=== PATIENT | male | born 1965 | race African-American/Black ===

== ENCOUNTER 2019-12-01 14:18 | Observation (INO) | payer OTHER, SELFPAY ==
[2019-12-01] VITALS (11 sets, daily range): BP systolic 139–168; BP diastolic 76–100; PULSE 52–67; RESP 14–22; TEMP 36.6–36.8; O2SAT 96–100; BMI 31.4
--- NOTE | ~2019-12-01 | CT_ITS ---
EXAMINATION: CTA chest PE protocol DATE: 12/01/2019 16:11 INDICATION: Chest pain for several months, anterior wall TECHNIQUE: Computed tomography angiography (CTA) of the chest was performed with 100 mL Omnipaque-350 intravenous contrast timed to evaluate the pulmonary arteries. Coronal maximum intensity projection 3D-reconstructions were created by the technologist. Automated exposure control and iterative reconst ruction technique were employed. Exam dose: 515.01 mGy-cm total exam DLP. COMPARISON: 12/01/19992012 two-view chest FINDINGS: There is diagnostic contrast enhancement of the pulmonary arteries and no evidence of pulmo nary embolism. No thoracic aortic aneurysm or dissection. Normal heart size. No pericardial or pleural effusion. No hilar or mediastinal mass lesion or lymphadenopathy. No pulmonary infiltrate or consolidation or pulmonary mass lesion is detected. The included upper abdominal structures are unremarkable, including the visualized portions of the ad renal glands. Postoperative change from anterior cervical spine fusion is incidentally noted but detail is limited due to associated streak artifact. IMPRESSION: No evidence of pulmonary embolism Reviewed, dictated and finalized at [facility]. Reviewed, dictated and finalized at location A.
--- NOTE | ~2019-12-01 | XR_ITS ---
EXAMINATION: XR_CERV2-3V_CR DATE: 12/01/2019 17:24 INDICATION: Numbness in the arms. TECHNIQUE: 4 views of cervical spine were obtained. COMPARISON: None. FINDINGS: There is 6 degrees levocurvature of cervicothoracic spine. There are changes of anterior fu tram procedures at C4-C5 and C6-C7 with instrumentation. There are changes of disc replacement at C5- C6. Vertebral body heights are normal. There is mildly decreased disc height at C3-C4. The facet join ts are unremarkable. There is developmental osseous central canal stenosis from C3 to C6. No preverte bral soft tissue swelling. IMPRESSION: 1. Mild cervical spondylosis. 2. Surgical changes including anterior fusion procedures at C4-C5 and C6-C7 and disc replacement proc edure at C5-C6. Reviewed, dictated and finalized at location A. IMPRESSION: 1. Mild cervical spondylosis. 2. Surgical changes including anterior fusion procedures at C4-C5 and C6-C7 and disc replacement procedure at C5-C6.
--- NOTE | ~2019-12-01 | XR_ITS ---
XR chest 2V DATE: 12/01/2019 14:46 INDICATION: Frontal chest pain for several months TECHNIQUE: PA and lateral views COMPARISON: None FINDINGS: Status post surgical cervical spine fusion. There is suggestion of possible fracture of a f usion plate along the cervical spine. Consider cervical spine radiographs. Normal heart size. No hilar or mediastinal enlargement. No pulmonary infiltrate or consolidation, pl eural effusion or pulmonary vascular congestion or pneumothorax. IMPRESSION: No active cardiac pulmonary disease Possible fracture of surgical metal fusion plate of cervical spine; consider cervical spine radiograp hs as clinically appropriate Reviewed, dictated and finalized at location A. IMPRESSION: No active cardiac pulmonary disease Possible fracture of surgical metal fusion plate of cervical spine; consider ce rvical spine radiographs as clinically appropriate
--- NOTE | ~2019-12-01 | CT_ITS ---
EXAMINATION: CT brain wo con DATE: 12/01/2019 14:58 INDICATION: Left-sided numbness. TECHNIQUE: Computed tomography (CT) of the head was performed without intravenous contrast. The mA wa s adjusted according to patient size. Iterative reconstruction technique was employed. The dose-lengt h product was 605.33 mGy-cm. COMPARISON: None FINDINGS: There is a prominent perivascular space at the inferior aspect of the right basal ganglia. There is no acute ischemic infarct or intracranial hemorrhage. The ventricles are normal in size. The orbits are normal. There is mild mucosal thickening in the paranasal sinuses. The mastoid air cells are normal. IMPRESSION: 1. No etiology for the patient's symptoms. Reviewed, dictated and finalized at location A.
--- NOTE | 2019-12-01 14:28 | ECG_ITS ---
Measurements Intervals [place] Rate: 69 P: 34 [place]: 170 QRS: 15 QRSD: 91 T: 19 QT: 377 QTc: 404 Interpretive Statements SINUS RHYTHM INCOMPLETE RIGHT BUNDLE BRANCH BLOCK BORDERLINE T WAVE ABNORMALITY- INFERIOR LEADS BASELINE WANDER- I, II, V3 BORDERLINE ECG Electronically Signed On 12-01-2019 14:32:29 CDT by Edin Saul D.O.
[2019-12-01] MEDS: ASPIRIN 81 MG CHEWABLE TABLET 324 MG PO (14:30)
[2019-12-01 14:52] LABS: Basophils Absolute Auto 0.1 K/mm3 (0.0-0.1); Basophils Percent Auto 0.8 % (0.2-1.2); Eosinophils Absolute Auto 0.2 K/mm3 (0-0.3); Eosinophils Percent Auto 2.3 % (0-4.4); Hematocrit 44.6 % (42.0-52.0); Hemoglobin 15.6 g/dL (14.0-18.0); Immature Granulocyte Absolute 0.02 K/mm3 (0.00-0.031); Immature Granulocyte Percent A 0.2 % (0-0.5); Lymphocytes Absolute Auto 3.21 K/mm3 (0.9-3.2); Lymphocytes Percent Auto 37.4 % (18.3-44.2); Mean Corpuscular Hemoglobin 29.3 pg (26-34); Mean Corpuscular Volume 83.7 fl (80-100); Mean Platelet Volume 10.5 fl (7.4-10.4); Monocytes Absolute Auto 0.7 K/mm3 (0.1-0.6); Monocytes Percent Auto 7.8 % (2.6-8.5); Neutrophils Absolute Auto 4.4 K/mm3 (1.3-6.7); Neutrophils Percent Auto 51.5 % (45.5-73.1); Platelet Count Result 248 k/mm3 (150-375); Red Blood Count 5.33 M/mm3 (4.6-6.20); Red Cell Distribution Width 12.6 % (11.5-14.5); White Blood Count 8.6 K/mm3 (4.5-10.0)
[2019-12-01 15:01] LABS: Prothrombin Time 12.8 Seconds (11.1-14.7)
[2019-12-01 15:02] LABS: Partial Thromboplastin Time 26.5 SECONDS (22.3-36.8)
[2019-12-01 15:03] LABS: Blood Urea Nitrogen 13 mg/dL (9-20); Calcium 8.8 mg/dL (8.4-10.2); Carbon Dioxide 25 mmol/L (22-30); Chloride 105 mmol/L (98-107); Estimated CRCL calculation 106 ml/min; Estimated Glomerular Filt Rate > 60; Glucose 108 mg/dL (75-110); Magnesium 2.1 mg/dL (1.6-2.3); Potassium 3.9 mmol/L (3.4-5.0); Sodium 137 mmol/L (137-145)
--- NOTE | 2019-12-01 15:04 | ED.CHESTPAIN ---
HPI - Chest Pain General Chief Complaint: Chest Pain Stated Complaint: chest pain Time Seen by Provider: 12/01/19 14:31 Source: RN notes reviewed History of Present Illness HPI narrative: Patient presents emergency department from home for chest pain. Patient states he is been having intermittent chest pain over the past several weeks. States at times will be worse with exertion. Is described as a pressure and a rubbing sensation over the left side of the chest. Patient states that also has been having some intermittent tingling in his left arm and his left leg. He states at times he will have some tingling in his right leg as well but is mainly in his left arm and left leg. While he has a tingling and numbness he denies having any actual difficulty using the left arm or left leg. Patient has had spinal sUrgery before in the past but denies any current neck pain. He denies any previous cardiac history. He denies any fevers or chills abdominal pain or any other symptoms. Patient states most recent episode of left-sided numbness occurred upon awaking this morning has been constant throughout the day Related Data Allergies Allergy/AdvReac Type Severity Reaction Status Date / Time No Known Allergies Allergy Unverified 03/15/14 19:47 Review of Systems Review of Systems: Narrative: Gen.: Denies fevers or chills Eyes: Denies eye pain or visual change ENT: Denies congestion Respiratory: Denies shortness of breath or cough CV: Reports chest pain GI: Denies abdominal pain nausea, emesis or diarrhea denies burning, urgency, frequency or hematuria Musculoskeletal: Denies back pain or muscle pain Neuro: Denies numbnessweakness or focal weakness reports tingling in the left hand elbow and the bilateral lower extremities Skin: Denies rash Except as documented, all other systems reviewed and negative [facility] Past Medical History Medical History (Updated 12/01/19 @ 19:20 by Hector Carney DO) Patient denies significant medical history Surgical History Surgical History (Updated 12/01/19 @ 18:51 by Hector Carney DO) Hx of cervical spine surgery Social History Social History (Updated 12/01/19 @ 18:51 by Hector Carney DO) Smoking status: Never smoker Exam Narrative: Exam Narrative: APPEARANCE: No acute distress, nontoxic, resting in bed EYES: EOMI HEENT: Normocephalic, atraumatic, OMM RESPIRATORY: No respiratory distress Clear to auscultation bilaterally with no rhonchi wheezing or rales. CARDIOVASCULAR: Regular rate and rhythm without murmurs rubs or gallops. ABDOMINAL: Soft, nontender, nondistended, no rebound or guarding MUSCULOSKELETAl: Moves all extremities. No clubbing, cyanosis or edema. NEURO: Awake and alert x 3. Following commands, speech normal, no focal deficits muscle strength 5 out of 5 bilateral upper and lower extremities SKIN:: Warm, dry. No rashes lesions or abrasions PSYCHIATRIC: Normal affect/mood, Course Course Emergency Course: Discussed with ROCCO Mora presentation work-up. Agrees with admission at this time Discussed with Dr. Shelton presentation and work-up. Agrees with consult at this time Discussed with patient and family results of workup and diagnosis. Discussed need for admission. Patient and family understand and agree to current treatment plan Vital Signs Vital signs: Vital Signs Temperature 98.3 F 12/01/19 14:21 Pulse Rate 64 12/01/19 14:21 Respiratory Rate 22 H 12/01/19 14:21 Blood Pressure 168/93 H 12/01/19 14:21 Pulse Oximetry 98 12/01/19 14:21 Temperature 98.3 F 12/01/19 14:21 Pulse Rate 58 L 12/01/19 19:05 Respiratory Rate 18 12/01/19 19:05 Blood Pressure 166/95 H 12/01/19 19:05 Pulse Oximetry 99 12/01/19 19:05 MDM - Chest Pain MDM Narrative Medical decision making narrative: Discussed with ROCCO Mora presentation work-up. Agrees with admission at this time Discussed with patient and family results of workup and diagnosis
[2019-12-01 15:15] LABS: Troponin I < 0.012 ng/mL (0.000-0.034)
[2019-12-01 18:02] LABS: Troponin I < 0.012 ng/mL (0.000-0.034)
[2019-12-01 22:03] LABS: Troponin I < 0.012 ng/mL (0.000-0.034)
--- NOTE | 2019-12-01 22:17 | ADMGEN ---
This patient, Kali Linder, was admitted to IMU Room 214-01. Patient/family oriented to hospital policies and general routines including ID bracelet, bed and alarms, visiting hours, pain management, procedures, bathroom and other care routines, personal items, smoking policy, room service/diet, and visiting hours. Valuables list has been completed. Information on how to activate the Rapid Response Team has been discussed. Patient/Family are encouraged to report perceived risks to care and to ask questions if they do not understand what they are told or what they should do.
[2019-12-02] VITALS (8 sets, daily range): BP systolic 130–148; BP diastolic 74–94; PULSE 48–58; RESP 12–18; TEMP 35.8–36.7; O2SAT 97–100
[2019-12-02 05:34] LABS: Basophils Absolute Auto 0.1 K/mm3 (0.0-0.1); Basophils Percent Auto 0.7 % (0.2-1.2); Eosinophils Absolute Auto 0.2 K/mm3 (0-0.3); Eosinophils Percent Auto 2.8 % (0-4.4); Hematocrit 42.6 % (42.0-52.0); Hemoglobin 14.9 g/dL (14.0-18.0); Immature Granulocyte Absolute 0.01 K/mm3 (0.00-0.031); Immature Granulocyte Percent A 0.1 % (0-0.5); Lymphocytes Absolute Auto 2.48 K/mm3 (0.9-3.2); Lymphocytes Percent Auto 36.4 % (18.3-44.2); Mean Corpuscular Hemoglobin 29.3 pg (26-34); Mean Corpuscular Volume 83.7 fl (80-100); Mean Platelet Volume 10.2 fl (7.4-10.4); Monocytes Absolute Auto 0.6 K/mm3 (0.1-0.6); Monocytes Percent Auto 8.2 % (2.6-8.5); Neutrophils Absolute Auto 3.5 K/mm3 (1.3-6.7); Neutrophils Percent Auto 51.8 % (45.5-73.1); Platelet Count Result 211 k/mm3 (150-375); Red Blood Count 5.09 M/mm3 (4.6-6.20); Red Cell Distribution Width 12.3 % (11.5-14.5); White Blood Count 6.8 K/mm3 (4.5-10.0)
[2019-12-02 05:44] LABS: Blood Urea Nitrogen 14 mg/dL (9-20); Calcium 8.6 mg/dL (8.4-10.2); Carbon Dioxide 28 mmol/L (22-30); Chloride 103 mmol/L (98-107); Estimated CRCL calculation 117 ml/min; Estimated Glomerular Filt Rate > 60; Glucose 109 mg/dL (75-110); Potassium 3.9 mmol/L (3.4-5.0); Sodium 136 mmol/L (137-145)
--- NOTE | 2019-12-02 08:24 | PM.CNCAR ---
Assessment and Plan Assessment and plan (1) Chest pain: Code(s): R07.9 - Chest pain, unspecified Status: Acute Assessment and Plan: Atypical chest pain. Will arrange her exercise EKG stress test to rule out ischemia. (2) Left sided numbness: Code(s): R20.0 - Anesthesia of skin Status: Acute Assessment and Plan: Could be related to cervical spine disease. He did have previous cervical spine surgery. (3) Hx of cervical spine surgery: Code(s): Z98.890 - Other specified postprocedural states Status: Acute History of Present Illness History of Present Illness Consult date/time: Date of service 12/02/19 08:24 this is 54-year-old patient with past medical history of cervical spine surgery. He started about couple days feeling intermittent central chest pain, lasted about 10 minutes with no aggravating or relieving factors. Associated with left arm numbness and also numbness of left side his face. Denies shortness of breath, lower limb edema, orthopnea, paroxysmal nocturnal dyspnea, dizziness, syncope. EKG interpreted myself shows normal sinus rhythm and no ischemia. Troponins x3 negative . CT thorax showed no pulmonary embolism,. cervical spine x-ray:1. Mild cervical spondylosis. 2. Surgical changes including anterior fusion procedures at C4-C5 and C6-C7 and disc replacement procedure at C5-C6. Requesting physician: Shaylee Simon MD Consult reason: chest pain Reason For Visit: chest pain, left sided numbness Review of Systems Constitutional: Constitutional: Denies chills, Denies fever(s) and Denies poor appetite Eyes: Eyes: Denies eye discharge, Denies loss of vision, Denies eye pain and Denies photophobia ENT: Denies dizziness, Denies epistaxis, Denies nasal congestion and Denies sore throat Cardiovascular: Cardiovascular: Reports chest pain, Denies syncope, Denies pedal edema, Denies leg edema, Denies palpitations, Denies dyspnea, Denies dyspnea on exertion and Denies orthopnea Respiratory: Respiratory: Denies cough, Denies dyspnea, Denies dyspnea on exertion and Denies wheezing Gastrointestinal: Gastrointestinal: Denies abdominal pain, Denies diarrhea, Denies nausea and Denies vomiting Genitourinary: Genitourinary: Denies hematuria, Denies genital lesions and Denies dysuria Musculoskeletal: Musculoskeletal: Denies arthralgias, Denies joint swelling and Denies numbness Integumentary/Breasts: Skin/Breast: Denies pruritus and Denies rash Neurologic: Denies dizziness, Denies syncope, Denies loss of vision and Reports numbness Psychiatric: Psychiatric: Denies anxiety and Denies depression Endocrine: Endocrine: Denies cold intolerance, Denies heat intolerance and Denies palpitations Hematologic/Lymphatic: Hematologic/Lymphatic: Denies easy bleeding and Denies easy bruising Allergic/Immunologic: Allergic/Immunologic: Denies urticaria and Denies wheezing PMFSH Past Medical History Medical History Patient denies significant medical history Surgical History Surgical History Hx of cervical spine surgery Family History Family History Mother Lung cancer Father CHF (congestive heart failure) Hypertension Sibling Diabetes mellitus Social History Social History Smoking status: Never smoker Alcohol intake: current Substance use: never Substance use type: does not use Spiritual care concerns: No Meds Home Medications and Allergies Home Medications Medication Instructions Recorded Confirmed Type No Home Medications 12/01/19 12/01/19 History Allergies Allergy/AdvReac Type Severity Reaction Status Date / Time No Known Allergies Allergy Unverified 03/15/14 19:47 Vital Signs Vit
--- NOTE | 2019-12-02 13:23 | PM.SD ---
Same Day Admit/Disch: HPI History of Present Illness Chief complaint: chest pain, left sided numbness Narrative: Kali Linder is a 54 year old male admitted with left sided chest pain. ongoing intermittent left sided chest pain associated with mild tingling in arms and feet. pt is very active works out in [employer]. pt denies smoking, pt does not have any cardiac history. pt denies any heart burn or cough or fever or wheeze. pt had ekg showing sinus bradycardia no ischemic event. labs unremarkable, Troponins x3 negative . CT thorax showed no pulmonary embolism. cervical spine x-ray:1. Mild cervical spondylosis. 2. Surgical changes including anterior fusion procedures at C4-C5 and C6-C7 and disc replacement procedure at C5-C6. pt seen by cardiology ok for discharge with follow up stress test. Pts mentions tingling maybe related to cspine surgery. PMFSH Past Medical History Medical History Patient denies significant medical history Surgical History Surgical History Hx of cervical spine surgery Family History Family History Mother Lung cancer Father CHF (congestive heart failure) Hypertension Sibling Diabetes mellitus Social History Social History Smoking status: Never smoker Alcohol intake: current Substance use: never Substance use type: does not use Spiritual care concerns: No Same Day Admit/Disch: Med Pre-admit Medications Home Medications Medication Instructions Recorded Confirmed Type No Home Medications 12/01/19 12/01/19 History Exam Const: General: well developed Nutritional Appearance: well nourished HENMT: Head: normocephalic Eyes: General: appearance normal, both eyes and all related structures Pupils: Equal, round and reactive pupils present Neck: Neck: supple Chest: Chest palpation & inspection: normal inspection of the chest Resp: Effort & Inspection: normal respiratory effort Auscultation: clear to auscultation bilaterally Cardio: Jugular venous distension: no JVD Rhythm: regular rhythm Heart sounds: S1 normal heart sound present and S2 normal heart sound present GI: Inspection: normal to inspection GI Palp: No abdominal tenderness, Yes Soft to palpation and No Tenderness to palpation present (GI) Auscultation: normal bowel sounds Skin: General skin exam: normal color and dry skin Neuro: Cranial nerves: Yes CN's II-XII intact bilaterally and Yes Equal, round and reactive pupils present Cognition (Neuro): normal cognition Speech: normal speech Motor exam (neuro): 5/5 motor strength present throughout Extrem: General: normal to inspection Psych: Appearance: grossly normal Mental Status: mental status grossly normal DS: Data Data Completed and Pending Labs on day of discharge: Labs from last 24 hours 12/02/19 12/02/19 12/01/19 04:47 04:47 21:33 WBC 6.8 RBC 5.09 Hgb 14.9 Hct 42.6 MCV 83.7 MCH 29.3 MCHC 35.0 RDW 12.3 Plt Count 211 MPV 10.2 Immature Gran % (Auto) 0.1 Neut % (Auto) 51.8 Lymph % (Auto) 36.4 [place] % (Auto) 8.2 Eos % (Auto) 2.8 Baso % (Auto) 0.7 Lymph # (Auto) 2.48 [place] # (Auto) 0.6 Eos # (Auto) 0.2 Baso # (Auto) 0.1 Abs Immat Gran (auto) 0.01 Absolute Neuts (auto) 3.5 Absolute Nucleated RBC 0.0 Nucleated RBC % 0.0 PT INR APTT Sodium 136 L Potassium 3.9 Chloride 103 Carbon Dioxide 28 BUN 14 Creatinine 0.90 Estim Creat Clear Calc 117 Estimated GFR > 60 Glucose 109 Calcium 8.6 Magnesium Troponin I < 0.012 12/01/19 12/01/19 12/01/19 17:33 14:42 14:42 WBC RBC Hgb Hct MCV MCH MCHC RDW Plt Count MPV Immature Gran % (Auto)
== END 2019-12-02 13:30 | disposition home or self-care (01) ==
LOC: ANHED 19:20 → ANHIMU 20:22
PROVIDERS: Admitting Provider Family Medicine; Emergency Provider Emergency Medicine; Visit Provider Family Medicine
DX: R07.89 Other chest pain (principal); R20.0 Anesthesia of skin; M47.812 Spondylosis without myelopathy or radiculopathy, cervical region; Z98.1 Arthrodesis status
CPT/HCPCS: 36415; 70450; 71046; 71275; 72040; 80048; 83735; 84484; 85025; 85610; 85730; 93005; 99285; A9270; G0378; Q9967

== ENCOUNTER 2019-12-10 17:46 | Observation (INO) | payer OTHER, SELFPAY ==
[2019-12-10] VITALS (8 sets, daily range): BP systolic 137–155; BP diastolic 81–110; PULSE 55–80; RESP 15–20; TEMP 36.3–36.9; O2SAT 95–100; BMI 29.9; BMI 28.0
--- NOTE | ~2019-12-10 | XR_ITS ---
EXAMINATION: XR chest 2V EXAM DATE: 12/10/2019 18:52 INDICATION: Left-sided chest pain. TECHNIQUE: Frontal and lateral projections of the chest obtained and reviewed. Comparison is made to prior examination from 12/01/2019. FINDINGS: The lungs are clear. There are no pleural effusions. The cardiomediastinal silhouette is within normal limits. There is no pneumothorax suspected. Cervical fusion hardware. There is no sig nificant interval change. IMPRESSION: No acute cardiopulmonary findings. Reviewed, dictated and finalized at location A.
--- NOTE | ~2019-12-10 | CT_ITS ---
EXAMINATION: CT cervical spine wo con DATE: 12/12/2019 15:35 INDICATION: Left-sided numbness. TECHNIQUE: Computed tomography (CT) of the cervical spine was performed without intravenous contrast. Automated exposure control and iterative reconstruction technique were employed. The dose-length pro duct was 510.38 mGy-cm. COMPARISON: None FINDINGS: Bone alignment is normal. Vertebral body heights are normal. There are changes of disc repl acement at C5-C6. There are changes of anterior fusion procedures at C4-C5 and C6-C7 with instrumenta tion. There is mildly decreased disc height at C3-C4. Osseous central spinal canal is developmentally small from C1 to C7. The following disc levels are specifically discussed: C2-C3: There is mild right uncovertebral joint osteoarthritis. There is mild right facet joint osteoa rthritis. There is no neural foraminal stenosis. There is mild central canal stenosis. C3-C4: There is mild bilateral uncovertebral joint osteoarthritis. There is mild bilateral facet join t osteoarthritis. There is no neural foraminal stenosis. There is mild central canal stenosis. C4-C5: There is no uncovertebral joint hypertrophy. There is mild right facet joint osteoarthritis. T here is no neural foraminal stenosis. There is mild central canal stenosis. C5-C6: There is no uncovertebral joint hypertrophy. There is mild bilateral facet joint osteoarthriti s. There is no neural foraminal stenosis. There is mild central canal stenosis. C6-C7: There is mild bilateral uncovertebral joint hypertrophy. There is mild bilateral facet joint h ypertrophy. There is mild bilateral neural foraminal stenosis. There is mild central canal stenosis. C7-T1: There is no uncovertebral joint osteoarthritis. There is moderate right and severe left facet joint osteoarthritis. There is mild left neural foraminal stenosis. There is no central canal stenosi s. IMPRESSION: 1. Mild cervical spondylosis. 2. Anterior fusion procedures at C4-C5 and C6-C7. 3. Disc replacement at C5-C6. Reviewed, dictated and finalized at location E.
--- NOTE | ~2019-12-10 | CT_ITS ---
EXAMINATION: CTA brain carotid DATE: 12/11/2019 14:44 INDICATION: Dizziness and left-sided paresthesias TECHNIQUE: Computed tomographic angiography (CTA) of the head was performed without and with 100 mL O mnipaque-350 intravenous contrast. CTA of the neck was performed with intravenous contrast. The dose- length product was 1847.01 mGy-cm. Maximum intensity projection and volume rendered 3D-reconstruction s were created by the technologist on a separate workstation. Automated exposure control and iterativ e reconstruction technique were employed. COMPARISON: 12/01/2019 FINDINGS: HEAD CTA: There is no intracranial hemorrhage, acute infarction, or abnormal mass lesion. The ventric les are normal. There is no abnormal mass effect or midline shift. The stapleton-white matter differentiat ion is normal. The basal cisterns are patent. The orbits are normal. The paranasal sinuses, mastoids and calvarium are normal. There is no significant stenosis of the basilar artery or posterior cerebral arteries. There is no si gnificant stenosis of the intracranial internal carotid arteries or the anterior or middle cerebral a rteries. The anterior communicating artery and posterior communicating arteries are normal. There is no aneurysm. NECK CTA: The thyroid gland is unremarkable. The submandibular and parotid glands are symmetric. Ther e is no lymphadenopathy. There are no masses identified. The airway is unremarkable. There are no oss eous abnormalities. The superior mediastinum is unremarkable. There are changes of anterior fusion fr om C4 through C7. There is 0% stenosis of the proximal right internal carotid artery relative to normal distal artery l umen diameter (NASCET criteria). There is 0% stenosis of the proximal left internal carotid artery re lative to normal distal artery lumen diameter. IMPRESSION: 1. No acute intracranial abnormality. Normal head CTA. 2. 0% stenosis of the proximal right internal carotid artery relative to normal distal artery lumen d iameter (NASCET criteria). 3. 0% stenosis of the proximal left internal carotid artery relative to normal distal artery lumen di ameter. Reviewed, dictated and finalized at location A. IMPRESSION: 1. No acute intracranial abnormality. Normal head CTA. 2. 0% stenosis of the proximal right internal carotid artery relative to normal distal artery lumen diameter (NASCET criteria). 3. 0% stenosis of the proximal left internal carotid artery relative to normal distal artery lumen diameter.
--- NOTE | 2019-12-10 18:37 | ECG_ITS ---
Measurements Intervals [place] Rate: 71 P: 65 [place]: 161 QRS: 14 QRSD: 97 T: 33 QT: 381 QTc: 416 Interpretive Statements SINUS RHYTHM INCOMPLETE RIGHT BUNDLE BRANCH BLOCK ST ELEVATION IN ANTERIOR LEADS- PROBABLY EARLY REPOLARIZATION BASELINE ARTIFACT- I, III, AVR, AVL, AVF BORDERLINE ECG Electronically Signed On 12-11-2019 7:27:02 CDT by Edin Saul D.O.
[2019-12-10 18:48] LABS: Basophils Absolute Auto 0.1 K/mm3 (0.0-0.1); Basophils Percent Auto 0.8 % (0.2-1.2); Eosinophils Absolute Auto 0.2 K/mm3 (0-0.3); Hematocrit 45.6 % (42.0-52.0); Hemoglobin 15.7 g/dL (14.0-18.0); Immature Granulocyte Absolute 0.01 K/mm3 (0.00-0.031); Immature Granulocyte Percent A 0.1 % (0-0.5); Lymphocytes Absolute Auto 2.74 K/mm3 (0.9-3.2); Lymphocytes Percent Auto 37.3 % (18.3-44.2); Mean Corpuscular HGB Conc 34.4 g/dl (32-36); Mean Corpuscular Hemoglobin 28.7 pg (26-34); Mean Corpuscular Volume 83.4 fl (80-100); Mean Platelet Volume 10.3 fl (7.4-10.4); Monocytes Absolute Auto 0.5 K/mm3 (0.1-0.6); Monocytes Percent Auto 6.3 % (2.6-8.5); Neutrophils Absolute Auto 3.9 K/mm3 (1.3-6.7); Neutrophils Percent Auto 53.5 % (45.5-73.1); Platelet Count Result 240 k/mm3 (150-375); Red Blood Count 5.47 M/mm3 (4.6-6.20); Red Cell Distribution Width 12.6 % (11.5-14.5); White Blood Count 7.4 K/mm3 (4.5-10.0)
[2019-12-10] MEDS: ASPIRIN 81 MG CHEWABLE TABLET 324 MG PO (19:00)
[2019-12-10 19:03] LABS: Blood Urea Nitrogen 13 mg/dL (9-20); Calcium 9.4 mg/dL (8.4-10.2); Carbon Dioxide 29 mmol/L (22-30); Chloride 103 mmol/L (98-107); Estimated CRCL calculation 97 ml/min; Estimated Glomerular Filt Rate > 60; Glucose 141 mg/dL (75-110); Sodium 141 mmol/L (137-145)
[2019-12-10 19:15] LABS: Troponin I < 0.012 ng/mL (0.000-0.034)
[2019-12-10 19:34] LABS: INR 0.9; Prothrombin Time 12.3 Seconds (11.1-14.7)
[2019-12-10 19:37] LABS: Partial Thromboplastin Time 27.5 SECONDS (22.3-36.8)
[2019-12-10] MEDS: LABETALOL HCL INJ 100 MG/20 ML VIAL 20 MG IV PUSH (19:58)
--- NOTE | 2019-12-10 20:23 | PC.NURSE ---
spoke with evie in the lab, he will add on d dimer & cortisol. I spoke with [facility] regarding Fractionated Metanephrine, she states 2 lavender top tubes need to be cooled prior to the blood draw, then sent to lab on ice. Instructions given to KERVIN Beavers.
--- NOTE | 2019-12-10 20:35 | ED.GENADULT ---
HPI - General Adult General Chief complaint: Chest Pain Stated complaint: Chest Pain, Lethergy Time Seen by Provider: 12/10/19 17:59 Source: patient and family Mode of arrival: ambulatory Limitations: no limitations History of Present Illness HPI narrative: 54-year-old male Presents to ER with complaint of same thing as last week to wit, he notes that he begins to feel weak and flushed for no particular reason, gets tightness on the left side of his chest, his blood pressure shoots up, and he gets tingling paresthesias on the left side of his face left arm and left leg He had somewhat similar complaints when he was admitted here overnight 9 days ago however that stay wound up to be just as a quick rule out He was discharged with no new prescriptions and is supposed to get an outpatient stress test with Dr. Walter next week Onset (ago): day(s) Severity: moderate Relieving factors: none Exacerbating factors: none Associated symptoms: headaches and malaise Treatments prior to arrival: none Related Data Home Medications Medication Instructions Recorded Confirmed No Home Medications 12/01/19 12/01/19 Allergies Allergy/AdvReac Type Severity Reaction Status Date / Time No Known Allergies Allergy Verified 12/10/19 18:21 Review of Systems Review of Systems: All systems reviewed & are unremarkable except as noted in HPI and below Constitutional: Constitutional: Reports fatigue Cardiovascular: Cardiovascular: Reports no additional cardiovascular complaints and Reports chest pain Respiratory: Respiratory: Denies cough and Denies dyspnea Gastrointestinal: Gastrointestinal: Denies diarrhea, Denies nausea and Denies vomiting Musculoskeletal: Musculoskeletal: Denies myalgias, Denies arthralgias and Denies joint swelling Integumentary/Breasts: Skin/Breast: Denies rash Neurologic: Reports dizziness, Reports headache(s) and Reports numbness PMFSH Past Medical History Medical History Patient denies significant medical history Surgical History Surgical History Hx of cervical spine surgery Family History Family History Mother Lung cancer Father CHF (congestive heart failure) Hypertension Sibling Diabetes mellitus Social History Social History Smoking status: Never smoker Alcohol intake: current Substance use: never Substance use type: does not use Gender identity (if verbalized by the patient): Male Spiritual care concerns: No Exam Const: General: healthy appearing, no acute distress and well developed Nutritional Appearance: well nourished Orientation/consciousness: patient oriented x3 (alert) and Other orientation findings (Alert) Limitations: no limitations HENMT: Head: normocephalic and atraumatic Ears: external ears normal General nose exam: No nasal discharge present and no epistaxis Face and sinus: face symmetric Mouth: Yes lip normal, Yes tongue normal and Yes moist mucous membranes Throat: other (No exudate, no erythema) Eyes: Conjunctivae: conjunctivae normal Sclera: sclerae normal EOM: EOMs intact bilaterally Neck: Neck: full ROM, no lymphadenopathy and supple Thyroid: thyroid normal Chest: Chest palpation & inspection: no tenderness Resp: Effort & Inspection: normal respiratory effort Auscultation: clear to auscultation bilaterally, no rales, no rhonchi, no wheezes and other (breath sounds equal) Cardio: Rate: regular rate Rhythm: regular rhythm Heart sounds: no gallops and no murmurs GI: Inspection: non-distended GI Palp: No abdominal tenderness and Yes Soft to palpation Auscultation: other (bowel sounds present) : General: Yes no CVA tenderness Back/Spine/Pelvis: Back: no CVA tenderness Thoracic/Lumbar Spine: thoracic and lumbar spine normal to ins
[2019-12-10 20:39] LABS: D Dimer 0.23 ug/mL (<0.48)
[2019-12-10 21:08] LABS: Cortisol Random 5.38 ug/dL
[2019-12-10 21:55] LABS: Troponin I < 0.012 ng/mL (0.000-0.034)
--- NOTE | 2019-12-10 23:02 | ADMGEN ---
This patient, Kali Linder, was admitted to IMU Room 202-. Patient/family oriented to hospital policies and general routines including ID bracelet, bed and alarms, visiting hours, pain management, procedures, bathroom and other care routines, personal items, smoking policy, room service/diet, and visiting hours. Valuables list has been completed. Information on how to activate the Rapid Response Team has been discussed. Patient/Family are encouraged to report perceived risks to care and to ask questions if they do not understand what they are told or what they should do.
[2019-12-11] VITALS (19 sets, daily range): BP systolic 121–156; BP diastolic 73–88; PULSE 54–86; RESP 16–20; TEMP 36–36.4; O2SAT 98–100
--- NOTE | 2019-12-11 | ECHO_ITS ---
Patient Info Name: Kali Sheppard Ahart Age: 54 years : 1965 Gender: Male Ht: 76 in Wt: 250 lbs BSA: 2.49 m2 HR: 56 bpm BP: 139 / 79 mmHg Heart Rhythm: Sinus Rhythm Technical Quality: Fair Exam Date: 12/11/2019 9:59 AM Exam Location: [facility] Patient Status: Inpatient Admit Date: 12/10/2019 Staff Ordering Physician: Philip Alba MD Music Intern: Geovanna Santa RDCS Attending Provider: Philip Alba MD Exam Type: CA echo dop color flow w con Study Info Complete two-dimensional, color flow and Doppler transthoracic echocardiogram is performed with contrast to opacify the left ventricle and to improve the deliniation of the left ventricle endocardial borders. Contrast/Agitated Saline Contrast/Ag. Saline: Definity Amount: 2.00 ml Summary 1. Left ventricular systolic function is hyperdynamic, estimated at >70%. 2. There is mildly increased left ventricular wall thickness. 3. The left ventricular diastolic function is normal. 4. There is no aortic valve stenosis. 5. There is no mitral valve regurgitation. 6. No pulmonary hypertension, estimated pulmonary arterial systolic pressure is 32 mmHg. 7. There is trace tricuspid valve regurgitation. 8. There is possible mild increase in the echogenicity of the pericardium, however, this may be due to gain/contrast settings given image quality. The pericardium does not appear thickened. 9. There is trivial pericardial effusion. Left Ventricle Left ventricular chamber dimension is normal. Left ventricular systolic function is hyperdynamic, estimated at >70%. There is mildly increased left ventricular wall thickness. The left ventricular diastolic function is normal. Right Ventricle Right ventricular chamber dimension is normal. Right ventricular systolic function is normal. Left Atria Left atrial chamber dimension is normal. Right Atria Right atrial chamber dimension is normal. Aortic Valve The aortic valve is probable trileaflet. There is no aortic valve stenosis. There is no aortic valve regurgitation. Pulmonic Valve The pulmonic valve is normal. There is trace pulmonic regurgitation. Mitral Valve The mitral valve has normal leaflets. There is no mitral valve regurgitation. Tricuspid Valve The tricuspid valve leaflets are normal. There is trace tricuspid valve regurgitation. No pulmonary hypertension, estimated pulmonary arterial systolic pressure is 32 mmHg. Pericardium/Pleural There is possible mild increase in the echogenicity of the pericardium, however, this may be due to gain/contrast settings given image quality. The pericardium does not appear thickened. There is trivial pericardial effusion. Inferior Vena Cava Normal inferior vena cava with >50% collapse upon inspiration consistent with normal right atrial pressure, 5 mmHg. Aorta The aortic root size at the sinus of Valsalva is normal. The prox ascending aorta size is normal. Left Ventricular Outflow Tract Name Value Normal LVOT 2D LVOT Diameter 2.29 cm LVOT Doppler LVOT Peak Gradient 5 mmHg
[2019-12-11 01:21] LABS: Troponin I < 0.012 ng/mL (0.000-0.034)
[2019-12-11] MEDS: ASPIRIN 81 MG CHEWABLE TABLET PO (08:09)
--- NOTE | 2019-12-11 08:51 | PM.IMHP ---
H&P: HPI History of Present Illness Chief complaint: severe hypertension, paresthesia Narrative: Kali Linder is a 54 year old male with diet controlled HTN here for CP and paresthesias. Patient was seen here on November 30 with several week complain of chest pain with exertion and intermittent tingling in his left leg. EKG showed no acute findings. Troponins were negative. Brain CT showing acute findings. CTA was negative for pulmonary embolism or other cardiopulmonary disease. Cervical spine x-ray showing surgical changes. Blood pressure was elevated on admission but improved during his overnight stay. He was not sent home on medications. Since discharge, patient has been home. He has not been exerting himself. He has continued to have chest pain similar to last visit. Chest pain is left sided and constant but seems to wax and wane severity up to 6/10 pain. Pain seems to improve with rest. Pain occurs at rest and with walking at times. He denies cough. Nothing seems to make it better. The pain is not positional, palpable or pleuritic. No diaphoresis but does have nausea and slight shortness of breath. He describes the pain as sharp radiating down the left arm. No overlying skin changes noted left chest. He was exercising on a treadmill up to about 3 weeks prior to this admission. No symptoms with a treadmill exercise. Patient is scheduled for outpatient stress test in December 13. Patient also continues to have numbness in left side of his body There was intermittent initially but now constant. He denies any recent neck trauma. He has a history of cervical spine surgery with his presenting symptoms of right-sided sharp radiating pain mostly in the right arm that resolved after surgery in 2011. Patient denies any pain or weakness in the left arm or leg. He has noted over the past week that his right foot is tingling. No slurred speech. No vision changes, diplopia, odynophagia or dysphagia. He has been having trouble putting sentences together but not particularly word-finding issues. He thinks this is symptoms associated with anxiety. Patient also has been having episodes of dizziness that he describes as feeling off balance. Symptoms use acid 1-2 minutes. It occurs with walking. No so seated chest pain. No spinning sensation. No orthostasis. No headaches. He did have 2 headaches last week but nothing constant. Patient also having left-sided tingling in his neck radiating up into his forehead. This usually associated with elevated blood pressure to up to 193/118. Had this for about 2 weeks. He has a history of hypertension about 5 years ago and was tried on antihypertensive medications for this would cause a precipitous drop in his blood pressure causing symptoms. He has since just been diet controlled. Patient also has been having flushing sensation but no diaphoresis with the left-sided neck tingling. Patient does not take any prescription medications nor does he take [id number] medications. Because of these persistent symptoms, patient presented back to the emergency room for evaluation. In the emergency room, his blood pressure is 155/110. EKG showing chronic right bundle branch block but no acute findings. chest x-ray was clear. He was given labetalol in the emergency room. D-dimer was normal. Troponins negative . He was started on aspirin and admitted for further care. Review of Systems Review of Systems: Narrative: Patient mentions he has had a recent episode of blood in the stool with red blood on the toilet paper and in the water. Had 3 episodes over the past year. He has never had a colonoscopy. No weight changes. No diagnosis of depression or anxiety. No urinary symptoms. All systems reviewed & are unremarkable except as noted in HPI and below PMFSH Past Medical History Medical History Essential hypertension Surgical History Surgical History
[2019-12-11] MEDS: PERFLUTREN LIPID MICROSPHERES 1.5 ML VIAL DILUTED TO 10 ML TOTAL VOLUME (10:45)
[2019-12-11 12:10] LABS: Glucose Point of Care 94 (65-105)
--- NOTE | 2019-12-11 12:11 | PM.CNCAR ---
Assessment and Plan Assessment and plan (1) Uncontrolled hypertension: Code(s): I10 - Essential (primary) hypertension Status: Acute Assessment and Plan: improved but not ideally controlled. Report sensitivity medications with precipitous symptomatic hypotension in the past. Initial screening for pheochromocytoma is noted in the system. Radiological evaluation for adrenal adenoma. defer to primary service. Monitor BP closely. Blood pressure control improved but did not resolve chest pain. It appears patient will require medical therapy for blood pressure control however. (2) Chest pain: Code(s): R07.9 - Chest pain, unspecified Status: Acute Assessment and Plan: Atypical, constant for over 2 weeks etiology unknown. No clear musculoskeletal or cardiac explanation thus far. CRP and ESR ordered to assess for systemic inflammatory contribution and evaluation for remote possibility of pericarditis. patient reports known longstanding early repolarization changes on EKG which is appreciated presently. If pericarditis I would not advise proceeding with outpatient stress test at as scheduled December 13. I do not believe his symptoms are cardiac and certainly not related to obstructive CAD given his symptom complex, Lack of ischemic EKG changes and normal serial troponins. Further recommendations in this regard depending on patient's clinical course and response to therapy. 2D echocardiogram pending. Will review when available. Recommendation follow as appropriate. (3) Paresthesia: Code(s): R20.2 - Paresthesia of skin Status: Acute Assessment and Plan: Workup per primary service. Unrelated to chest pain unless radiculopathy at multiple levels occurring simultaneously resulting in upper and lower extremity symptoms. (4) Left sided numbness: Code(s): R20.0 - Anesthesia of skin Status: Acute Assessment and Plan: As above, per primary service. History of Present Illness History of Present Illness Consult date/time: Date of service:12/11/19 12:11 This is a cardiology consultation at the request of Dr. Alba of the [facility] service for our opinion regarding chest pain management. Requesting physician: Philip Alba MD Consult reason: chest pain Reason For Visit: severe hypertension, paresthesia Narrative: patient is a very pleasant 54-year-old male with a history of hypertension longstanding who was admitted November 30 with complaints of chest pain ruled out for myocardial infarction. He was scheduled for an outpatient stress test on December 13 the given persistence of the symptoms presented back to the emergency department. He was noted be hypertensive 193/118 initially and admits his diastolic blood pressure has been generally well over 100 for the past 2 weeks. He had this chest pain is constant described as a dull ache occasionally sharp left upper chest and similar to his last visit. Intensity waxes and wanes but without necessarily associated with activity, position, movement and/or deep breathing. He has no exacerbation with lying or sitting up. Denies recent illnesses, fevers, chills or cough. Patient has been off work for 2 weeks given these symptoms and has not been exerting himself. The symptoms have not lessened or resolved. He has noted that after receiving new medication for his blood pressure initially with an improvement severity of his chest pain declined but did not resolve. he has ruled out with serial troponins once again. His electrocardiogram reveals diffuse J-point elevation consistent with early repolarization unchanged from prior tracing. Patient admits he has had several EKGs in the past and is aware he has longstanding early repolarization changes. his blood pressures generally have been ranging in the 150s over 100s of late and monitor this very closely. He reports precipitous drops his blood pressure in the past on antihypert
[2019-12-11 12:15] LABS: CRP < 0.5 mg/dL (<1.0)
[2019-12-11 12:27] LABS: Erythrocyte Sedimentation Rate 22 mm/hr (0-20)
--- NOTE | 2019-12-11 15:51 | WPDNEURCNPN ---
Assessment and Plan Assessment and plan (1) Uncontrolled hypertension: Code(s): I10 - Essential (primary) hypertension Status: Acute (2) Hyperglycemia: Code(s): R73.9 - Hyperglycemia, unspecified Status: Acute (3) Dizzy: Code(s): R42 - Dizziness and giddiness Status: Acute (4) Essential hypertension: Code(s): I10 - Essential (primary) hypertension Status: Acute (5) Paresthesia: Code(s): R20.2 - Paresthesia of skin Status: Acute (6) Chest pain: Code(s): R07.9 - Chest pain, unspecified Status: Acute (7) Left sided numbness: Code(s): R20.0 - Anesthesia of skin Status: Acute (8) Hx of cervical spine surgery: Code(s): Z98.890 - Other specified postprocedural states Status: Acute Additional Plan patient is going to have a repeat CT scan performed as he has as I understood MRI incompatible due to a device in his cervical spine if the repeat CT of the brain is negative then he will need a CT of the cervical spine to make sure he does not have any significant disease although on clinical grounds he does not have any radiculopathy or radicular symptoms Consult date: 12/11/19 Time Seen: 15:00 HPI: aKli Linder is a 54 year old male who is right-handed and has hypertensive was admitted for at least 3 weeks of numbness of the left upper and the lower extremity he does have a history of having had cervical surgery done and some kind of device in his disc a few years ago his symptoms have been present as mentioned above for some time without any significant motor weakness he denies any falls injury headache nausea vomiting chest pain shortness of breath fever chills sore throat Review of Systems Review of Systems: All systems reviewed & are unremarkable except as noted in HPI and below PMFSH Past Medical History Medical History Essential hypertension Surgical History Surgical History H/O elbow surgery Left H/O hand surgery Right Hx of cervical spine surgery 2010, 2011 Family History Family History Mother Lung cancer Father CHF (congestive heart failure) Hypertension Sibling Diabetes mellitus Social History Social History Social History: patient lives at home with his and daughter. He denies drug use. Lifelong nonsmoker. Drinks 4 alcoholic drinks a month on average. He is a full code. He nominates his to be the individual would make medical decisions for him if he is not able. Smoking status: Never smoker Alcohol intake: current Substance use: never Substance use type: does not use Gender identity (if verbalized by the patient): Male Spiritual care concerns: No Meds Home Medications and Allergies Home Medications Medication Instructions Recorded Confirmed Type No Home Medications 12/01/19 12/10/19 History Allergies Allergy/AdvReac Type Severity Reaction Status Date / Time No Known Allergies Allergy Verified 12/10/19 18:21 Vital Signs Vital Signs - 24 hr 12/10/19 18:15 12/10/19 19:54 12/10/19 20:02 Temperature 36.9 C Pulse Rate 68 66 65 Respiratory Rate 15 20 20 Blood Pressure 155/110 H 150/93 H 140/90 Pulse Oximetry 100 98 96 12/10/19 21:13 12/10/19 22:31 12/10/19 22:50 Temperature Pulse Rate 55 L 58 L 67 Respiratory Rate 20 20 20 Blood Pressure 141/87 H 140/91 H 147/94 H Pulse Oximetry 99 98 95 12/10/19 23:21 12/10/19 23:26 12/11/19 00:00 Temperature 36.3 C L Pulse Rate 64 63 70 Respiratory Rate 16 Blood Pressure 137/81 Pulse Oximetry 100 100 12/11/19 02:00 12/11/19 03:52 12/11/19 04:00 Temperature 36.4 C L Pulse Rate 86 64 59 L Respiratory Rate 18 18 Blood Pressure 121/73 Pulse Oximetry 100 100
[2019-12-11 20:38] LABS: Glucose Point of Care 87 (65-105)
[2019-12-11 20:50] LABS: Glucose Point of Care 112 (65-105)
[2019-12-12] VITALS (11 sets, daily range): BP systolic 127–148; BP diastolic 76–90; PULSE 57–70; RESP 16–18; TEMP 35.6–36.8; O2SAT 98–100
[2019-12-12 05:17] LABS: Alanine Aminotransferase 26 U/L (4-50); Albumin Level 3.7 g/dL (3.5-5.1); Alkaline Phosphatase 78 U/L (38-126); Anion Gap 11.1 mmol/L (7-16); Aspartate Amino Transferase 22 U/L (17-59); Bilirubin,Total 0.6 mg/dL (0.2-1.3); Blood Urea Nitrogen 11 mg/dL (9-20); Calcium 8.7 mg/dL (8.4-10.2); Carbon Dioxide 26 mmol/L (22-30); Chloride 105 mmol/L (98-107); Cholesterol 253 mg/dL (0-200); Estimated CRCL calculation 104 ml/min; Estimated Glomerular Filt Rate > 60; Glucose 96 mg/dL (75-110); HDL Direct 27 mg/dL; Potassium 4.1 mmol/L (3.4-5.0); Sodium 138 mmol/L (137-145); Triglycerides 159 mg/dL (<150)
[2019-12-12 08:56] LABS: Glucose Point of Care 85 (65-105)
[2019-12-12 09:48] LABS: LDL Cholesterol Direct 163 mg/dL
[2019-12-12] MEDS: ASPIRIN 81 MG CHEWABLE TABLET PO (09:52)
[2019-12-12 12:20] LABS: Glucose Point of Care 89 (65-105)
--- NOTE | 2019-12-12 13:02 | PM.PNCARD ---
Progress Note: A&P Assessment and Plan (1) Uncontrolled hypertension: Code(s): I10 - Essential (primary) hypertension Status: Acute Assessment and Plan: He will need directed medical therapy for BP control. Discussed with Dr. Alba. patient has sensitivities to certain medications he cannot recall at this time. Will attempt amlodipine 2.5 mg daily observe response. (2) Chest pain: Code(s): R07.9 - Chest pain, unspecified Status: Acute Assessment and Plan: Atypical, constant for over 2 weeks etiology unknown. 2D echocardiogram Reasonably unremarkable the exception of mild LVH and with suggestion of increased echogenicity of the pericardium but without thickening. Exam is not consistent with pericarditis, longstanding early repolarization changes on EKG corroborated by patient. While I do not feel strongly patient has active pericarditis, however, given clinical scenario I do not have a reasonable explanation otherwise and recommend an anti-inflammatory such as colchicine or ibuprofen (Although the latter would not be ideal given hypertension). This was all discussed in detail. trial of ibuprofen 600 mg p.o. t.i.d. x3 days, b.i.d. x3 days, then daily for 3 days with communication thereafter. Follow-up in the office within the next to weeks. I would hold off on outpatient scheduled stress test with time being as his symptoms are very unlikely to be related to obstructive CAD. Particularly given normal carotid arterial anatomy constant highly atypical nature of his symptoms with negative enzymes and no electrocardiographic changes. We discussed colchicine versus ibuprofen at length and felt ibuprofen may provide additional systemic anti-inflammatory benefit given clinical circumstances unless alternative explanation is found. Disposition per hospitalist service. No further inpatient cardiovascular workup at this time. (3) Paresthesia: Code(s): R20.2 - Paresthesia of skin Status: Acute Assessment and Plan: Workup per primary service. Unrelated to chest pain unless radiculopathy at multiple levels occurring simultaneously resulting in upper and lower extremity symptoms. (4) Left sided numbness: Code(s): R20.0 - Anesthesia of skin Status: Acute Assessment and Plan: As above, per primary service. Subjective Date/time seen: Date of service: 12/12/19 13:02 Interval history: Follow-up for chest pain, hypertension. Patient reports no change clinically. No exacerbation or resolution of chest discomfort. No associated activity or blood pressure. Chest pain, mild, dull left-sided is constant no new symptoms or concerns. Review of Systems Review of Systems: All systems reviewed & are unremarkable except as noted in HPI and below Constitutional: Constitutional: Reports as per HPI, Reports no additional constitutional complaints, Denies excessive sweating and Reports fatigue Eyes: Eyes: Reports as per HPI and Reports no additional eye complaints ENT: Reports system reviewed and no additional complaints, except as documented, Reports as per HPI and Reports neck pain Cardiovascular: Cardiovascular: Reports as per HPI, Reports no additional cardiovascular complaints, Reports chest pain, Denies diaphoresis, Denies pedal edema, Denies leg edema, Denies lightheadedness, Denies palpitations and Reports dyspnea Respiratory: Respiratory: Reports as per HPI, Reports no additional respiratory complaints, Denies cough, Denies hemoptysis, Reports dyspnea and Denies wheezing Gastrointestinal: Gastrointestinal: Reports as per HPI, Reports no additional gastrointestinal complaints, Denies abdominal pain, Denies melena, Denies bloating, Denies hematochezia, Denies diarrhea, Denies nausea and Denies vomiting Genitourinary: Genitourinary: Reports no additional male genitourinary complaints, Reports as per HPI, Denies hematuria and Denies dysuria Musculoskeletal: Musculosk
[2019-12-12 17:22] LABS: Glucose Point of Care 96 (65-105)
--- NOTE | 2019-12-12 17:45 | PM.DS ---
DS: Admitting Diagnosis Admitting Diagnosis Admitting Diagnosis: Essential (primary) hypertension DS: Discharge Diagnosis Discharge Diagnosis (1) Chest pain: Code(s): R07.9 - Chest pain, unspecified Status: Acute Assessment and Plan: Patient with atypical chest pain. Troponins negative x3. EKG showing no acute findings and no change from prior EKG earlier this month. He was started on aspirin. LDL 163 and HDL 27. Echo EF 70% with normal diastolic function. Possible mild echogenicity of the pericardium possibly pericarditis. Ibuprofen recommended. Cardiology was involved in the patient's care. They recommended Ibuprofen and to cancel the outpatient stress test. Norvasc added at low dose. Patient does not recall the name of the medications that he tried in the past for his HTN. Lipitor added. (2) Left sided numbness: Code(s): R20.0 - Anesthesia of skin Status: Acute Assessment and Plan: Patient with left-sided numbness. Patient is 8 years out from his surgery although this could be the etiology if he has recurrent cervical spine disease. Cannot perform MRI of his brain or cervical spine because of his hardware per patient. CTA of the head and neck was normal. Neurology was involved in his care. CT Cervical spine showing mild cervical spondylosis, anterior fusion procedures at C4-C5 and C6-C7 and disc replacement at C5-C6. B12, folate and TSH levells normal. Patient insturcted to follow up with surgeon who performed his original surgery for re-evaluation. (3) Essential hypertension: Code(s): I10 - Essential (primary) hypertension Status: Acute Assessment and Plan: Patient has elevated blood pressure at times. Unclear if this is essential hypertension that is symptomatic at times or if there is an underlying etiology such as pheochromocytoma. Catecholamines have been ordered. Low dose Norvasc added. (4) Dizzy: Code(s): R42 - Dizziness and giddiness Status: Acute Assessment and Plan: Patient with feeling of being off balance at times. This also could be related to his cervical spine disease and numbness in the extremity. Orthostatic vital signs okay. (5) Hyperglycemia: Code(s): R73.9 - Hyperglycemia, unspecified Status: Acute Assessment and Plan: A1c pending. Glucose noted be 141 on admission but then improved. (6) Hematochezia: Code(s): K92.1 - Melena Status: Acute Assessment and Plan: Patient has had 3 episodes of bright red blood per rectum. Most likely related to hemorrhoids but patient was instructed to follow-up with a GI doctor to get a colonoscopy. He is over the age of 50 and has not had a screening colonoscopy which he is due for. (7) Hx of cervical spine surgery: Code(s): Z98.890 - Other specified postprocedural states Status: Acute Assessment and Plan: As above. Patient instructed to follow up with surgeon who performed his original surgery for re-evaluation. DS: Summary Hospital Course Reason for hospitalization: 54yo male here for left sided numbness and chest pain. Please see H&P for details. Hospital Course: As above Time Spent with Patient Time attestation: Total time spent providing and/or coordinating discharge services:35 minutes Time spent: Greater than 30 minutes Specific discharge activities: patient seen and examined. Discussed at length with patient. Discussed Cardiology and Neurology. Exam Narrative: Exam Narrative: AF 148/87 62 16 98% ra Gen - NARD Chest - CTA bilaterally CV - RRR S1/S2, Tele showing no significant dysrhythmias Abd - soft, NT/ND, +BS Ext - no pedal edema Psych - nml mood and affect Skin - warm and dry DS: Data Data Completed and Pending Labs on day of discharge: Labs from last 24 hours 12/12/19 12/12/19 12/12/19 17:20 12:18 08:16 Sodium Potassium Chloride
--- NOTE | 2019-12-12 18:10 | WPDNEUROPN ---
Progress Note: A&P Assessment and Plan (1) Uncontrolled hypertension: Code(s): I10 - Essential (primary) hypertension Status: Acute (2) Dizzy: Code(s): R42 - Dizziness and giddiness Status: Acute (3) Essential hypertension: Code(s): I10 - Essential (primary) hypertension Status: Acute (4) Paresthesia: Code(s): R20.2 - Paresthesia of skin Status: Acute (5) Chest pain: Code(s): R07.9 - Chest pain, unspecified Status: Acute (6) Left sided numbness: Code(s): R20.0 - Anesthesia of skin Status: Acute (7) Hx of cervical spine surgery: Code(s): Z98.890 - Other specified postprocedural states Status: Acute Additional Plan discussed with the patient in the presence of his that he should follow-up with the surgeon who operated on his neck and he would most likely D the nerve conduction study and further evaluation by the neurosurgeon I suspect these and numbness he is having on the left side is related to his cervical spine rather than a TIA and/or stroke and I also discussed with the hospitalist the patient could be discharged at the discretion of him with continuation of the is aspirin Review of Systems Review of Systems: All systems reviewed & are unremarkable except as noted in HPI and below Exam Const: General: comfortable and no acute distress HENMT: General nose exam: Normal nares present Mouth: Yes moist mucous membranes Eyes: General: appearance normal, both eyes and all related structures Neck: Neck: supple and no JVD Resp: Effort & Inspection: normal respiratory effort Auscultation: clear to auscultation bilaterally Cardio: Rate: regular rate Rhythm: regular rhythm GI: Auscultation: normal bowel sounds Skin: General skin exam: normal color and no rashes or lesions noted Neuro: Other: patient is awake alert well oriented time place and person and has normal speech and language function normal cranial exam haddad no more weakness subjective sensory dysfunction of the left upper and left lower extremity Extrem: General: normal to inspection Psych: Mental Status: mental status grossly normal Objective Data Vital Signs Vital Signs: Vital Signs - 24 hr 12/11/19 20:00 12/11/19 20:10 12/11/19 22:00 Temperature 36.1 C L 36.1 C L Pulse Rate 64 64 58 L Respiratory Rate 16 16 Blood Pressure 146/79 H 146/79 H Pulse Oximetry 100 100 12/12/19 00:00 12/12/19 00:12 12/12/19 02:00 Temperature 35.6 C L Pulse Rate 60 60 68 Respiratory Rate 18 18 Blood Pressure 144/88 H Pulse Oximetry 100 100 12/12/19 04:00 12/12/19 04:39 12/12/19 06:00 Temperature 35.7 C L Pulse Rate 63 63 61 Respiratory Rate 18 18 Blood Pressure 127/76 Pulse Oximetry 100 100 12/12/19 08:00 12/12/19 10:00 12/12/19 12:00 Temperature 35.7 C L 36.8 C Pulse Rate 57 L 70 61 Respiratory Rate 16 16 Blood Pressure 140/90 144/87 H Pulse Oximetry 100 99 12/12/19 14:00 12/12/19 16:00 Temperature 36.3 C L Pulse Rate 65 62 Respiratory Rate 16 Blood Pressure 148/87 H Pulse Oximetry 98 Intake/Output Intake/Output: Intake & Output 12/09/19 12/10/19 12/11/19 12/12/19 23:59 23:59 23:59 23:59 Intake Total 2620 1120 Balance 2620 1120 Meds/Results Medications: Active Medications Generic Name Dose Route Start Last Admin Trade Name Freq PRN Reason Stop Dose Admin Acetaminophen 650 mg 12/10/19 22:13 Tylenol Tablet PO Q4H PRN Mild Pain (1-3) or Fever Amlodipine Besylate 2.5 mg 12/13/19 09:00 Norvasc PO QAM [facility] Aspirin 81 mg 12/11/19 08:00 12/12/19 09:52 Aspirin Chewable PO 81 mg DAILY@0800 [facility] Administration Atorvastatin Calcium 10 mg 12/13/19 09:00 Lipitor PO DAILY [facility] Dextrose 12.5 gm 12/11/19 09:37 Dextrose 50% Syringe IV PUSH PRN PRN Hypoglycemia Protocol Glucagon 1 mg 12/11/19 09:37 Glucagon For Inj IM PRN
[2019-12-13 12:12] LABS: Hemoglobin A1C 5.6 % (<5.7)
[2019-12-17 10:39] LABS: Metanephrine, Free 37 pg/mL (<=57); Normetanephrine, Free 75 pg/mL (<=148); Total, Free (MN + NMN) 112 pg/mL (<=205)
--- NOTE | 2019-12-22 11:01 | PC.NURSE ---
Free Etanehh, Free Normetz and Total Free all WNL
== END 2019-12-12 18:05 | disposition home or self-care (01) ==
LOC: ANHED 22:21 → ANHIMU 23:40
PROVIDERS: Internal Medicine Cardiovascular Disease; Admitting Provider Internal Medicine; Emergency Provider Emergency Medicine; PCP Family Medicine; Visit Provider Internal Medicine
DX: R07.89 Other chest pain (principal); R20.0 Anesthesia of skin; M47.812 Spondylosis without myelopathy or radiculopathy, cervical region; Z98.1 Arthrodesis status; I10 Essential (primary) hypertension; R42 Dizziness and giddiness; R73.9 Hyperglycemia, unspecified; K92.1 Melena
CPT/HCPCS: 36415; 70496; 70498; 71046; 72125; 80048; 80053; 80061; 82533; 82607; 82746; 83036; 83835; 84443; 84484; 85025; 85380; 85610; 85652; 85730; 86140; 93005; 96374; 99285; A9270; C8929; G0378; Q9957; Q9967

== ENCOUNTER 2020-01-01 01:53 | Outpatient (CLI) | payer OTHER, SELFPAY ==
[2020-01-01 18:01] LABS: SARS-CoV-2 RNA PCR Negative
== END 2020-01-01 01:54 | disposition home or self-care (01) ==
LOC: ANHCOVIDDT 01:53
PROVIDERS: PCP Family Medicine; Visit Provider Internal Medicine Gastroenterology
DX: Z01.812 Encounter for preprocedural laboratory examination (principal); Z20.828 Contact with and (suspected) exposure to other viral communicable diseases
CPT/HCPCS: 87635; C9803; U0003

== ENCOUNTER 2020-01-04 03:28 | Day surgery (SDC) | payer OTHER, SELFPAY ==
[2019-12-29 14:55] VITALS: BMI 30.6
[2020-01-04] MEDS: LACTATED RINGERS 1,000 ML 150 ML IV CONT (07:56)
[2020-01-04 07:59] VITALS: BP 148/82; PULSE 73; RESP 16; TEMP 36.2; O2SAT 97; BMI 31.0
--- NOTE | 2020-01-04 08:06 | WPDANESEPPF ---
Anes - Initial Pre Proc Eval Procedure: Operation Date: 01/04/20 08:30 Proposed Procedures p Screening Colonoscopy - Khalif Perdomo MD Date/Time: 01/04/20 08:06 Surgeon: Khalif Perdomo MD Pre Op Diagnosis: neoplasm screening Patient Data Age: 54 Gender: M Height: 6 ft 4 in Weight: 115.8 kg Last Vital Signs Temp 97.1 F L 01/04/20 07:59 Pulse 73 01/04/20 07:59 Resp 16 01/04/20 07:59 BP 148/82 H 01/04/20 07:59 Pulse Ox 97 01/04/20 07:59 Allergies Allergy/AdvReac Type Severity Reaction Status Date / Time No Known Allergies Allergy Verified 01/04/20 07:50 Home Medications Medication Instructions Recorded Confirmed Type aspirin [Children's Aspirin] 81 mg PO DAILY@0800 #30 tablet 12/12/19 12/29/19 Rx atorvastatin 10 mg PO DAILY #30 tablet 12/12/19 12/29/19 Rx pantoprazole 40 mg PO QAM #30 tablet 12/12/19 12/29/19 Rx amlodipine 5 mg tablet 5 mg PO DAILY #30 tablet 12/17/19 12/29/19 Rx peg 3350-electrolytes 236 240 ml PO Q10M #4000 ml 12/29/19 Rx gram-22.74 gram-6.74 gram-5.86 gram solution Patient hx anesthesia problems: none Family hx anesthesia problems: none PMFSH Past Medical History Medical History (Updated 01/04/20 @ 08:06 by Jonnathan Trinh MD) Dizzy Essential hypertension Hematochezia HLD (hyperlipidemia) Irregular heart beat Surgical History Surgical History H/O elbow surgery Left H/O hand surgery Right Hx of cervical spine surgery 2010, 2011 Social History Social History Social History: patient lives at home with his and daughter. He denies drug use. Lifelong nonsmoker. Drinks 4 alcoholic drinks a month on average. He is a full code. He nominates his to be the individual would make medical decisions for him if he is not able. Smoking status: Never smoker Alcohol intake: current Substance use: never Substance use type: does not use Gender identity (if verbalized by the patient): Male Spiritual care concerns: No Anes - Eval Final PreProcedure Day of Procedure 01/04/20 08:06 Patient weight: overweight Heart: regular rate and rhythm Lungs: clear to auscultation Airway: Mallampati scale class II Neurological: alert and oriented Last oral intake: >/= 8 hours ASA classification: III Emergent: no Anesthetic plan: proceed Anesthesia type and monitoring: general GIVS and standard monitoring Informed Consent: The patient's anesthetic plan and its attendant risks and benefits were discussed with the patient/family/POA. Questions were solicited and answers provided to the satisfaction of the patient/family/POA.
--- NOTE | 2020-01-04 08:24 | SUR.PREOP ---
PATIENT COMPLAINED OF BEING LIGHT HEADED AND SLIGHTLY DIZZY WHEN HE WOKE UP THIS MORNING. FELLING OK NOW. IV FLUIDS GIVEN.
--- NOTE | 2020-01-04 08:24 | PM.HPGS ---
History of Present Illness History of Present Illness Consent: Risks, benefits, and alternatives have been discussed and questions answered. Patient agrees to proceed with procedure. Chief complaint: neoplasm screening Narrative: Kali Linder is a 54 year old male here for first screening colonoscopy Review of Systems Constitutional: Constitutional: Denies headache(s) and Denies weakness Eyes: Eyes: Denies blurry vision ENT: Reports Normal hearing present, Denies headache(s) and Denies neck pain Cardiovascular: Cardiovascular: Denies chest pain and Denies dyspnea Respiratory: Respiratory: Denies dyspnea Gastrointestinal: Gastrointestinal: Reports no additional gastrointestinal complaints Genitourinary: Genitourinary: Denies dysuria Musculoskeletal: Musculoskeletal: Denies neck pain Integumentary/Breasts: Skin/Breast: Denies dry skin Neurologic: Reports Normal hearing present, Denies headache(s) and Denies weakness Psychiatric: Psychiatric: Denies anxiety Endocrine: Endocrine: Denies change in body appearance Hematologic/Lymphatic: Hematologic/Lymphatic: Denies easy bleeding Allergic/Immunologic: Allergic/Immunologic: Denies urticaria [facility] Past Medical History Medical History (Updated 01/04/20 @ 08:25 by Khalif Perdomo MD) Colon cancer screening Dizzy Essential hypertension Hematochezia HLD (hyperlipidemia) Irregular heart beat Surgical History Surgical History H/O elbow surgery Left H/O hand surgery Right Hx of cervical spine surgery 2011 Social History Social History Social History: patient lives at home with his and daughter. He denies drug use. Lifelong nonsmoker. Drinks 4 alcoholic drinks a month on average. He is a full code. He nominates his to be the individual would make medical decisions for him if he is not able. Smoking status: Never smoker Alcohol intake: current Substance use: never Substance use type: does not use Gender identity (if verbalized by the patient): Male Spiritual care concerns: No Meds Home Medications and Allergies Home Medications Medication Instructions Recorded Confirmed Type aspirin [Children's Aspirin] 81 mg PO DAILY@0800 #30 tablet 12/12/19 12/29/19 Rx atorvastatin 10 mg PO DAILY #30 tablet 12/12/19 12/29/19 Rx pantoprazole 40 mg PO QAM #30 tablet 12/12/19 12/29/19 Rx amlodipine 5 mg tablet 5 mg PO DAILY #30 tablet 12/17/19 12/29/19 Rx peg 3350-electrolytes 236 240 ml PO Q10M #4000 ml 12/29/19 Rx gram-22.74 gram-6.74 gram-5.86 gram solution Allergies Allergy/AdvReac Type Severity Reaction Status Date / Time No Known Allergies Allergy Verified 01/04/20 07:50 Vital Signs Vital Signs - 24 hr 01/04/20 07:59 Temperature 97.1 F L Pulse Rate 73 Respiratory Rate 16 Blood Pressure 148/82 H Pulse Oximetry 97 Exam Const: General: comfortable and no acute distress HENMT: General nose exam: Normal nares present Eyes: General: appearance normal, both eyes and all related structures Neck: Neck: no JVD Resp: Auscultation: clear to auscultation bilaterally Cardio: Rate: regular rate Rhythm: regular rhythm GI: Inspection: non-distended GI Palp: Yes Soft to palpation Skin: General skin exam: normal color Neuro: General: gait normal Speech: normal speech Extrem: General: normal to inspection Psych: Mental Status: mental status grossly normal Assessment and Plan Assessment and plan (1) Colon cancer screening: Code(s): Z12.11 - Encounter for screening for malignant neoplasm of colon Status: Acute Assessment and Plan: will proceed with colonoscopy (2) Essential hypertension: Code(s): I10 - Essential (primary) hypertension Status: Acute
[2020-01-04 08:54] VITALS: BP 127/81; PULSE 76; RESP 17; O2SAT 98
[2020-01-04 09:04] VITALS: BP 126/81; PULSE 75; RESP 21; O2SAT 95
[2020-01-04 09:14] VITALS: BP 125/82; PULSE 61; RESP 21; O2SAT 96
== END 2020-01-04 09:28 | disposition home or self-care (01) ==
PROVIDERS: PCP Family Medicine; Visit Provider Internal Medicine Gastroenterology
PROC: 0DJD8ZZ Inspection of Lower Intestinal Tract, Via Natural or Artificial Opening Endoscopic (ICD-10-PCS; CPT 45378; principal; 2020-01-04 08:30)
DX: Z12.11 Encounter for screening for malignant neoplasm of colon (principal); K64.8 Other hemorrhoids; I10 Essential (primary) hypertension; E78.5 Hyperlipidemia, unspecified; R42 Dizziness and giddiness
CPT/HCPCS: 45378; J2704; J7120